=== PATIENT | male | born 1990 | race Caucasian/White ===

== ENCOUNTER 2020-09-06 18:01 | Emergency (ER) | payer BC ==
--- NOTE | 2020-09-06 18:42 | EDM.PDOC ---
ED HPI GENERAL MEDICAL PROBLEM - General Chief Complaint: ENT Problem Stated Complaint: LEFT EAR PAIN Time Seen by Provider: 09/06/20 18:40 Source of Information: Reports: Patient, Old Records History Limitations: Reports: No Limitations - History of Present Illness INITIAL COMMENTS - FREE TEXT/NARRATIVE: 30 yo male here with L ear pain since about noon today. Is having a lot of trouble with his allergies lately. No fever. No hx of ear problems. Has not been swimming lately. Onset: Today, Gradual Onset Date: 09/06/20 Onset Time: 12:00 Duration: Hour(s):, Getting Worse Location: Reports: Face (L ear) Quality: Reports: Ache Severity: Moderate Improves with: Reports: None Worsens with: Reports: Other (time) Context: Reports: Other (See HPI) Associated Symptoms: Reports: Other (rhinorrhea, congestion). Denies: Cough, Fever/Chills Treatments NURSE CLINICAL: Reports: Other (see below) (none) ED ROS ENT - Review of Systems Review Of Systems: See Below Constitutional: Reports: No Symptoms HEENT: Reports: Ear Pain (left), Rhinitis. Denies: Ear Discharge, Throat Pain Respiratory: Reports: No Symptoms Cardiovascular: Reports: No Symptoms Skin: Reports: No Symptoms Neurological: Reports: No Symptoms ED EXAM, ENT - Physical Exam Exam: See Below Exam Limited By: No Limitations General Appearance: Alert, WD/WN, No Apparent Distress Eye Exam: Bilateral Eye: Normal Inspection Ears: Normal External Exam, Normal Canal, Hearing Grossly Normal, TM Erythema (left). No: Normal TMs, Canal Blood, Canal Discharge, TM Obscured by Cerumen, Cerumen Impaction Nose: Normal Inspection, No Blood Mouth/Throat: Normal Inspection, Normal Lips, Normal Oropharynx Head: Atraumatic, Normocephalic Neck: Normal Inspection Respiratory/Chest: No Respiratory Distress, Lungs Clear, Normal Breath Sounds, No Accessory Muscle Use Cardiovascular: Regular Rate, Rhythm, No Edema GI/Abdominal: Normal Bowel Sounds, Soft, Non-Tender, No Distention Back: Normal Inspection. No: CVA Tenderness (R), CVA Tenderness (L) Extremities: Normal Inspection, Normal Range of Motion, Non-Tender, No Pedal Edema Neurological: Alert, Oriented, CN II-XII Intact, Normal Cognition, No Motor/Sensory Deficits Psychiatric: Normal Affect, Normal Mood Skin: Warm, Dry, Intact, Normal Color, No Rash Course - Vital Signs Last Recorded V/S: Last Vital Signs Temp 36.6 C 09/06/20 18:43 Pulse 77 09/06/20 18:43 Resp 14 09/06/20 18:43 BP 111/78 09/06/20 18:43 Pulse Ox 97 09/06/20 18:43 Departure - Departure Time of Disposition: 18:49 Disposition: Home, Self-Care 01 Condition: Good Clinical Impression: Left otitis media Qualifiers: Otitis media type: unspecified Qualified Code(s): H66.92 - Otitis media, unspecified, left ear - Discharge Information *PRESCRIPTION DRUG MONITORING PROGRAM REVIEWED*: Not Applicable *COPY OF PRESCRIPTION DRUG MONITORING REPORT IN PATIENT [place]: Not Applicable Instructions: Otitis Media, Adult, [id number] Referrals: PCP,None [Primary Care Provider] - Forms: ED Department Discharge Additional Instructions: Take amoxicillin as directed. For pain use acetaminophen and/or ibuprofen. If not taking anything already for your allergies consider taking cetirizine 10 mg daily(Zyrtec). Recheck with a doctor of your choice in a clinic if not completely better in a week. Sepsis Event Note (ED) - Focused Exam Vital Signs: Vital Signs Temp Pulse Resp BP Pulse Ox 09/06/20 18:43 36.6 C 77 14 111/78 97
== END 2020-09-06 18:56 | disposition home or self-care (01) ==
LOC: JP.ED 18:01
DX: H66.92 Otitis media, unspecified, left ear (principal)
CPT/HCPCS: 99283